=== PATIENT | male | born 1935 | race Caucasian/White ===

== ENCOUNTER → 2016-07-23 | Outpatient (CLI) | payer MEDICARE ==
[2016-07-23 11:38] LABS: Calcium 9.3 mg/dL (8.4-10.2); Potassium 4.8 mmol/L (3.5-5.1)
== END | disposition home or self-care (01) ==
LOC: LABWHC1 10:55
PROVIDERS: ATTEND Internal Medicine Clinical Cardiac Electrophysiology
DX: I48.2 Chronic atrial fibrillation (principal)
CPT/HCPCS: 36415; 80048

== ENCOUNTER → 2017-01-01 | Outpatient (CLI) | payer MEDICARE ==
--- NOTE | 2017-01-01 11:13 | US ---
EXAMINATION TYPE: US venous doppler duplex LE DATE OF EXAM: 01/01/2017 9:33 AM COMPARISON: LOWER EXTREMITY VENOUS INSUFFICIENCY HISTORY: 81-year-old male with right and left leg pain SIDE PERFORMED: bilateral FINDINGS: 1) Color flow is present and patency is documented in the following vessels. No DVT or SVT is noted . EIV Common Femoral Vein Deep Femoral Vein Femoral Vein Popliteal Vein Proximal Calf Veins Greater Saph Vein Upper Small Saph Vein Right GSV harvested for CABG. 2) There is venous reflux noted at the following venous levels: Right: Deep femoral vein, upper to lower superficial femoral vein, upper popliteal vein, and small saphenous vein. Left: GSV, CFV, DFV, lower superficial femoral vein, and throughout the popliteal vein. IMPRESSION: 1. No evidence for DVT within the bilateral lower extremities imaged from the groin to the upper calv es. 2. Bilateral lower extremity venous reflux as outlined above.
--- NOTE | 2017-01-06 11:02 | P.ARTDOP ---
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 Doppler waveforms: Multiphasic bilaterally throughout. Pulse volume recording: Distal blunting. Pressure gradients: Only at the foot level. Ankle-brachial indices: Cannot be occluded. 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 Tissue perfusion appears adequate for healing. Proximal flow probably normal. Decreased toe pressures related to mild to moderate occlusive disease. Clinical correlation recommended.
== END | disposition home or self-care (01) ==
LOC: RADUSWWP 08:51
PROVIDERS: ATTEND Podiatrist
DX: I87.2 Venous insufficiency (chronic) (peripheral) (principal); E13.621 Other specified diabetes mellitus with foot ulcer; M79.604 Pain in right leg; M79.605 Pain in left leg
CPT/HCPCS: 93923; 93970

== ENCOUNTER → 2017-03-17 | Outpatient (CLI) | payer MEDICARE ==
[2017-03-17 10:24] LABS: HCT 41.7 % (39.0-53.0); MCH 29.8 pg (25.0-35.0); MCHC 31.1 g/dL (31.0-37.0); MCV 95.9 fL (80.0-100.0); Mean Platelet Volume 9.1; Platelet Count 156 k/uL (150-450); RBC 4.35 m/uL (4.30-5.90); RDW 15.7 % (11.5-15.5); WBC 11.2 k/uL (3.8-10.6)
[2017-03-17 10:39] LABS: Calcium 9.5 mg/dL (8.4-10.2)
[2017-03-17 10:41] LABS: Potassium 4.5 mmol/L (3.5-5.1)
== END ==
LOC: LABWHC1 09:55
PROVIDERS: ATTEND Internal Medicine Clinical Cardiac Electrophysiology
DX: I48.1 Persistent atrial fibrillation (principal); I50.23 Acute on chronic systolic (congestive) heart failure; I25.5 Ischemic cardiomyopathy
CPT/HCPCS: 36415; 80048; 85027

== ENCOUNTER 2017-03-25 06:01 | Day surgery (SDC) | payer MEDICARE ==
[2017-03-22 13:16] VITALS: BMI 23.7
[2017-03-25] MEDS ORDERED: SODIUM CHLORIDE 0.9% 1,000 ML IV SCH (06:16)
[2017-03-25] MEDS ORDERED: SODIUM CHLORIDE 0.9% 1,000 ML IV ONE (06:50)
[2017-03-25 07:01] LABS: Glucose,Whole Blood 174 mg/dL (75-99)
[2017-03-25 07:04] LABS: INR 2.3 (<1.2); Prothrombin Time 20.4 sec (9.0-12.0)
[2017-03-25] MEDS ORDERED: MIDAZOLAM 2 MG/2 ML VIAL ONE (07:20)
[2017-03-25] MEDS ORDERED: PHENYLEPHRINE-0.9% NACL SYG 1 MG/10 ML SYRINGE ONE (07:20)
[2017-03-25] MEDS ORDERED: PROPOFOL 10 MG/ML 20 ML VIAL IV ONE (07:20)
[2017-03-25] MEDS ORDERED: IODIXANOL 270 MG/ML 50 ML ML IV ONE (07:43)
[2017-03-25] MEDS ORDERED: IV FLUID CONTINUATION 1,000 ML IV ONE (08:00)
[2017-03-25 08:07] VITALS: TEMP 97
--- NOTE | 2017-03-25 08:07 | P.PCN ---
Preoperative Diagnosis: Procedure ICD interrogation with reprogramming Electrical cardioversion for symptomatic atrial fibrillation with worsening heart failure symptoms and poor rate control Cinefluoroscopy of the ICD leads Left upper extremity venogram Patient was brought to the EP lab in a fasting state. Written informed consent was obtained prior to the procedure. The [employer] medical ICD was interrogated. 2411-30 6Q serial number [id number]. R waves 11.6 mV, sensing 0.5 V at 0.5 ms, impedance 460 ohms, high-voltage impedance 56 ohms Following electrical cardioversion atrial pacing threshold 0.75 V at 0.5 ms P waves 3 mV and pacing impedance 400 ohms Following electrical cardioversion device reprogrammed to DDDR mode 50-120 bpm with a long AV delay of 300 ms MADIT RIT programming Electrical cardioversion performed under conscious sedation. 360 J biphasic shock used in the AP configuration to cardiovert the patient in sinus rhythm. 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 In order to implant an LV lead, a central axis will need to be obtained subclavian access Plan Reduce amiodarone to 200 mg by mouth daily Continue all other medications No digoxin continue anticoagulation Dr. Flores in the device clinic in 6 weeks Anesthesia: MAC Disposition: same day
[2017-03-25 08:14] LABS: Glucose,Whole Blood 153 mg/dL (75-99)
[2017-03-25 08:38] VITALS: RESP 18
[2017-03-25 09:36] VITALS: BP 120/54; PULSE 54
== END 2017-03-25 09:37 | disposition home or self-care (01) ==
LOC: CATHEP 06:01
PROVIDERS: ATTEND Internal Medicine Clinical Cardiac Electrophysiology
DX: I48.1 Persistent atrial fibrillation (principal); Z79.01 Long term (current) use of anticoagulants; Z45.02 Encounter for adjustment and management of automatic implantable cardiac defibrillator; I25.5 Ischemic cardiomyopathy; I25.10 Atherosclerotic heart disease of native coronary artery without angina pectoris; I11.0 Hypertensive heart disease with heart failure; I50.23 Acute on chronic systolic (congestive) heart failure; Z87.891 Personal history of nicotine dependence; Z95.1 Presence of aortocoronary bypass graft; E78.5 Hyperlipidemia, unspecified; E11.9 Type 2 diabetes mellitus without complications; Z79.84 Long term (current) use of oral hypoglycemic drugs; Z95.810 Presence of automatic (implantable) cardiac defibrillator; Z79.899 Other long term (current) drug therapy
CPT/HCPCS: 92960; 85610; J2250; Q9966; J2370; J2704

== ENCOUNTER → 2021-07-16 | Outpatient (CLI) | payer MEDICARE ==
[2021-07-16 18:31] LABS: African American GFR (CKD) 45.5 (60.0-200.0); Albumin 4.5 g/dL (3.8-4.9); Albumin/Globulin Ratio 1.61 (1.60-3.17); Anion Gap 11.3 mmol/L (10.00-18.00); BUN/Creat Ratio 18.81 Ratio (12.00-20.00); Blood Urea Nitrogen 30.1 mg/dL (9.0-27.0); Calcium 9.2 mg/dL (8.7-10.3); Carbon Dioxide 24.7 mmol/L (20.0-27.5); Globulin 2.8 g/dL (1.6-3.3); Non-African American GFR(CKD) 39.3 (60.0-200.0); Phosphorus 2.8 mg/dL (2.4-5.1); Potassium 4.5 mmol/L (3.5-5.5); Total Bilirubin 1.3 mg/dL (0.30-1.20); Total Protein 7.3 g/dL (6.2-8.2)
== END | disposition home or self-care (01) ==
LOC: LABWHC1 12:06
PROVIDERS: ATTEND Internal Medicine
DX: E11.22 Type 2 diabetes mellitus with diabetic chronic kidney disease (principal); E11.51 Type 2 diabetes mellitus with diabetic peripheral angiopathy without gangrene; N18.9 Chronic kidney disease, unspecified; Z79.4 Long term (current) use of insulin
CPT/HCPCS: 36415; 80053; 82306; 83036; 83970; 84100